=== PATIENT | female | born 1945 | race Caucasian/White ===

== ENCOUNTER 2024-12-16 13:48 | Emergency (ER) | payer OTHER, SELFPAY ==
[2024-12-16] VITALS (7 sets, daily range): BP systolic 90–121; BP diastolic 58–77
[2024-12-16 14:04] LABS: % Basophils 0.8 % (0-2); % Eosinophils 3.5 % (0-6); % Immature Granulocytes 0.2 % (0-0.5); % Lymphocytes 28.9 % (20.5-51.1); % Monocytes 10.7 % (1.7-9.3); % Neutrophils 55.9 % (42.2-75.2); Absolute Basophils 0.1 10^3/uL (0-0.2); Absolute Eosinophils 0.2 10^3/uL (0-0.7); Absolute Lymphocytes 1.8 10^3/uL (1.2-3.4); Absolute Monocytes 0.7 10^3/uL (0.1-0.6); Absolute Neutrophils 3.4 10^3/uL (1.4-6.5); Hematocrit 39.4 % (37.0-47.0); Hemoglobin 13.1 g/dL (12.0-16.0); Mean Corp Hgb Conc. 33.2 g/dL (33.0-37.0); Mean Corpuscular Hgb 27.5 pg (27.0-31.0); Mean Corpuscular Volume 82.6 fL (81.0-99.0); Mean Platelet Volume 9.3 fL (7.4-10.4); Nucleated Red Blood Cells % 0 %; Platelet Count 284 10^3/uL (130-400); Red Blood Cell Count 4.77 10^6/uL (4.20-5.40); Red Cell Dist. Width 13.1 % (11.5-14.5); White Blood Cell Count 6.1 10^3/uL (4.8-10.8)
[2024-12-16 14:19] LABS: ALT (SGPT) 19 U/L (0-35); AST (SGOT) 26 U/L (14-36); Albumin 4.3 g/dl (3.5-5.0); Alkaline Phosphatase 88 U/L (38-126); Blood Urea Nitrogen 17 mg/dl (7-17); Calcium 9.7 mg/dl (8.4-10.2); Carbon Dioxide 26 mmol/L (22-30); Chloride 106 mmol/L (98-107); Glucose 132 mg/dl (70-99); Potassium 3.8 mmol/L (3.5-5.1); Sodium 140 mmol/L (135-145); Total Bilirubin 0.7 mg/dl (0.2-1.3); Total Protein 7.5 g/dl (6.3-8.2); eGFR > 60.00
--- NOTE | 2024-12-16 14:23 | ED.GENMED ---
History of Present Illness
General
Chief Complaint: Chest Pain
Time Seen by Provider: 12/16/24 14:03
History of Present Illness
History of Present Illness:
Patient presents to the emergency department with left-sided axillary and scapular pain. Has been ongoing for 3 days. States it is not exertional and actually improves after she walks her daily 3 miles. However, pain is very bothersome. Denies
pain with inspiration. Notes she had a little bit of shortness of breath yesterday. She took a nitro prior to arrival which did not improve her symptoms.
Phy Exam
Physical Exam
Physical Exam:
GENERAL APPEARANCE: NAD, well developed/ well nourished
EYES lids/conjunctiva normal
EARS/NOSE/THROAT Mucous membranes moist, uvula midline without oral pharyngeal erythema, exudate or swelling
HEAD/NECK normocephalic atraumatic, neck is supple.
RESPIRATORY respiratory effort normal, speaks in full sentences, no accessory muscle use. Lungs clear to auscultation without rhonchi, wheezes, rales
CARDIAC Regular rate and rhythm, no edema.
ABDOMINAL Soft, ND/NT. No pulsatile masses on exam, rebound tenderness, [place] sign or pain over Mcburney's point.
MUSCLES/EXTREMITIES No abnormal range of motion, no swelling.
SKIN Warm, pink and dry. No rashes
NEUROLOGICAL Speech is clear and appropriate. Normal level of consciousness. 5/5 strength in all extremities.
PSYCH Normal mood and affect. Judgement/competence is appropriate
Scores
Heart Score for Chest Pain Patients
STEMI patient?: Not applicable
Course
Orders/Labs/Results
Orders:
Orders
12/16/24 13:57
Complete Blood Count/With Diff Urgent
Comprehensive Metabolic Panel Urgent
D-Dimer Urgent
Troponin I Urgent
12/16/24 14:14
CR Chest - 2 Views Urgent
Comment:
Reason For Exam: cp
12/16/24 16:57
CT Chest PE Study Urgent
Comment:
Reason For Exam: chest pain, positive ddimer
12/16/24 17:21
Troponin I Urgent
Abnormal Lab Results
12/16/24
13:57
Absolute Monos (auto) 0.7 H 10^3/uL
(0.1-0.6)
Monocytes % 10.7 H %
(1.7-9.3)
D-Dimer 0.78 H ug/mlFEU
(0.00-0.50)
Glucose 132 H mg/dl
(70-99)
12/16/24 13:57
12/16/24 13:57
Vital Signs
Initial and Last Documented VS:
Initial Vital Signs
Temp Pulse Resp BP Pulse Ox
98.4 F 57 18 108/65 97
12/16/24 13:52 12/16/24 13:52 12/16/24 13:52 12/16/24 13:52 12/16/24 13:52
Last Documented Vital Signs
Temp Pulse Resp BP Pulse Ox
98.4 F 48 13 121/77 93
12/16/24 13:52 12/16/24 19:00 12/16/24 19:00 12/16/24 19:00 12/16/24 17:45
*Critical Care Note
Total Time (30-74mins, 75-104mins- exclusive of procedures): Not Applicable
ED Attending Note
ED Attending Note
ED Attending Note:
Patient with of 3 days of chest pain. Negative troponin x2 and no acute ischemic changes on EKG. D-dimer negative making pulmonary embolism much less likely. Low voltage EKG noted. Bedside ultrasound without significant pericardial effusion.
Patient not in any distress, minimal pain 1/10 in severity and stable for close outpatient follow-up.
-
Portions of this chart may have been created with voice recognition software.� Occasional wrong word or��sound alike� substitutions may have occurred due to the inherent limitations of voice recognition software.
Discharge Plan
Departure
Patient Disposition: Home (Routine Discharge)
Date of Disposition: 12/16/24
Time of Disposition: 19:16
Patient with high blood pressure during this ER visit?: No
Discharge Problem:
Chest pain
Instructions: Chest Pain CBC Follow Up
Prescriptions:
New
nitroglycerin 0.4 mg tablet, sublingual
0.4 mg sublingual Q5-15M PRN (Reason: chest pain) Qty: 10 0RF
No Action
atorvastatin 20 mg Tablet
20 mg PO DAILY
omeprazole 40 mg Capsule,Delayed Release(Dr/Ec)
40 mg PO DAILY
alprazolam 0.5 mg Tablet
0.5 mg PO BID PRN (Reason: anxiety)
amlodipine 10 mg Tablet
10 mg PO DAILY
levothyroxine 50 mcg Tablet
50 mcg PO DAILY
benazepril 40 mg Tablet
40 mg PO DAILY
mirtazapine 7.5 mg Tablet
7.5 mg PO HS
metoprolol succinate 50 mg Capsule,Sprinkle,Er 24hr
50 mg PO DAILY
aspirin 81 mg Capsule
81 mg PO DAILY
Referrals:
UNKNOWN - PT DOES,NOT KNOW [Family Provider]
Activity Restrictions/Additional Instructions:
follow up with the underwriting assistant in the next few days
return to the ER with new or worsening symptoms
Interventions
Interventions:
*Risk Screen - Suicide Last Done: 12/16/24 13:52
*General Assessment Last Done: 12/16/24 13:52
*Neglect/Abuse Screening Last Done: 12/16/24 13:52
*ED- Fall Risk Assessment Last Done: 12/16/24 14:00
*ED COVID-19 Vaccine History Last Done: 12/16/24 14:00
*Nursing Disposition Last Done: 12/16/24 19:53
ED- Cardiac Assessment Last Done: 12/16/24 19:53
Discharge Date and Time
Discharge Date/Time: 12/16/24 19:53
Print Language: KITTITIAN
[2024-12-16 14:31] LABS: Troponin I < 0.012 ng/ml
[2024-12-16 14:44] LABS: D-Dimer 0.78 ug/mlFEU (0.00-0.50)
[2024-12-16 17:58] LABS: Troponin I < 0.012 ng/ml
== END 2024-12-16 19:53 | disposition home or self-care (01) ==
LOC: EMR 13:48
PROVIDERS: Student in an Organized Health Care Education/Training Program; EMERGENCY PHYSICIAN Emergency Medicine
DX: R07.89 Other chest pain (principal)
CPT/HCPCS: 99284; 71046; 71275; 80053; 84484; 85025; 85379; 93005; Q9967